=== PATIENT | male | born 1945 | race Caucasian/White ===

== ENCOUNTER 2016-06-21 03:28 | Inpatient (IN) ==
[2016-06-17 11:07] LABS: MANUAL DIFF NEEDED? NO
[2016-06-17 11:19] LABS: BASO% 0.8 % (0.0-0.8); EOS# 0.12 X1000 (0.0-0.7); EOS% 1.2 % (0.0-10.0); HEMATOCRIT 43.7 % (42.0-52.0); IMM GRAN# 0.04 X1000 (0.0-0.04); IMM GRAN% 0.4 % (0.0-0.5); LYMPH# 1.32 X1000 (1.2-3.4); LYMPH% 13.2 % (20.5-51.1); MCH 31.6 PG (27-31); MCHC 34.3 g/dL (33-37); MONO# 0.91 X1000 (0.11-0.59); MONO% 9.1 % (1.7-9.3); MPV 11.6 FL (7.4-10.4); NEUT% 75.3 % (42.2-75.2); PLT 121 X1000 (130-400); RBC 4.75 XMIL (4.7-6.1)
[2016-06-17 11:31] LABS: AGAP 10; BUN 15 mg/dL (8-22); CALCIUM 9.1 mg/dL (8.8-10.2); CHLORIDE 105 mmol/L (98-107); COSMO 285; POTASSIUM 4.8 mmol/L (3.5-5.1); SODIUM 141 mmol/L (136-145); TCO2 26 mmol/L (25-35)
[2016-06-21] MEDS ORDERED: PEPCID ONE (05:29)
[2016-06-21] MEDS ORDERED: LR 1,000 ML ONE ×2 (05:30→12:04)
[2016-06-21] MEDS ORDERED: KEFZOL 2 GM/D5W 0 ML ONE (05:30)
[2016-06-21] MEDS ORDERED: KEFZOL 2 GM/D5W 50 ML ONE (06:20)
[2016-06-21] MEDS ORDERED: VERSED ONE (06:25)
[2016-06-21] MEDS ORDERED: MARCAINE 0.25% PF/EPI 1:200,000 ONE (06:45)
[2016-06-21 08:02] LABS: URINE MICRO REVIEW NEEDED? NO; URINE SOURCE CATH
[2016-06-21 08:09] LABS: BILIRUBIN URINE NEGATIVE (NEGATIVE); BLOOD URINE NEGATIVE (NEGATIVE); COLOR YELLOW; GLUCOSE URINE NEGATIVE (NEGATIVE); LEUKOCYTES URINE NEGATIVE (NEGATIVE); NITRITE URINE NEGATIVE (NEGATIVE); PH URINE 5.5; PROTEIN URINE NEGATIVE (NEGATIVE); SP GRAVITY URINE 1.011; TURBIDITY URINE CLEAR (CLEAR); UR EPITHELIAL CELLS <10 /HPF (<10); URINE BACTERIA NEGATIVE /HPF; URINE RBC <10 /HPF (<10); URINE WBC <10 /HPF (<10); UROBILINOGEN URINE NORMAL (NORMAL)
[2016-06-21] MEDS ORDERED: SODIUM CHLORIDE 0.9% 20 ML ONE (08:37)
[2016-06-21] MEDS ORDERED: EXPAREL 1.3% ONE ×3 (08:37→09:43)
[2016-06-21] MEDS ORDERED: FENTANYL ONE (11:29)
[2016-06-21] MEDS ORDERED: OFIRMEV 1000 MG/ISOTONIC SOLN 100 ML ONE (11:30)
[2016-06-21] MEDS ORDERED: DIPRIVAN 1% ONE (11:30)
[2016-06-21] MEDS ORDERED: LABETALOL ONE (11:31)
[2016-06-21] MEDS ORDERED: DILAUDID ONE (11:52)
[2016-06-21] MEDS ORDERED: LUBRIFRESH PM OPH OINTMENT ONE (12:51)
[2016-06-21] MEDS ORDERED: ZOFRAN ONE (12:51)
[2016-06-21] MEDS ORDERED: NEOSTIGMINE ONE (12:51)
[2016-06-21] MEDS ORDERED: XYLOCAINE-MPF 2% ONE (12:52)
[2016-06-21] MEDS ORDERED: NORCURON ONE (12:52)
[2016-06-21] MEDS ORDERED: ROBINUL ONE (12:52)
[2016-06-21] MEDS ORDERED: NS 500 ML ONE (12:52)
[2016-06-21] MEDS ORDERED: STERILE WATER INJ. ONE (12:52)
[2016-06-21] MEDS ORDERED: QUELICIN (DOSE) ONE (12:52)
[2016-06-21] MEDS ORDERED: LR 2,000 ML ONE (12:52)
[2016-06-21] MEDS ORDERED: DECADRON ONE (12:52)
[2016-06-21] MEDS ORDERED: BREVIBLOC ONE (12:52)
--- NOTE | 2016-06-21 13:08 | OPERATIVE NOTE ---
PROCEDURE DATE: 06/21/2016 PREOPERATIVE DIAGNOSIS: Right upper lobe biopsy-proven lung cancer. POSTOPERATIVE DIAGNOSIS: Right upper lobe biopsy-proven lung cancer. PROCEDURES: 1. Right thoracotomy. 2. Right upper lobectomy. SURGEON: Manuel Quinones MD. STE[employer] FIREMAN: Stephen Davison MD. Dr. Davison assisted with retraction, identification of vessels on the resection. FINDINGS: Palpable lesion noted in the right upper lobe which was removed. The lesion in the right lower lobe which was not active on PET was palpable, but to do the full resection would essentially require a right lower lobe lobectomy and I was unsure if the patient would tolerate the physiologic consequences of this at the same time. COMPLICATIONS: None at the time of dictation. ESTIMATED BLOOD LOSS: 200 mL. SPECIMENS REMOVED: Right upper lobe. DRAINS: Two 28-South African chest tubes. BRIEF HISTORY: The patient is a 71-year-old male with biopsy-proven lung cancer. He had undergone a pulmonary function test, was found to be tolerated. He actually had an evaluation also by Dr. Tony with pulmonology who thought he could tolerate it. He also had cardiac clearance thought he could tolerate it. Therefore, we elected to remove the mass. The risks, benefits, alternatives were discussed. He voiced understanding and wished to proceed with procedure. DESCRIPTION OF PROCEDURE: After informed consent was obtained, patient was brought to the operative theatre, transferred to the operative table and placed in the supine position. General endotracheal anesthesia was then performed without complication. The patient is repositioned to right side up. Anesthesia was able to place a double-lumen tube and confirmed that we had isolated both lungs. We then prepped and draped the right side in a sterile fashion. A formal time-out was then performed confirming patient, date, procedure and side. All were in agreement. It should be noted the patient's right side had been previously confirmed and marked with the patient in preoperative holding. After this, and after the formal time-out, we made a standard lateral thoracotomy incision to enter into the thorax. At that time, the lung was deflated by anesthesia. We were able to safely enter the cavity. We tried to preserve the intercostal nerves as much as we could. We entered through the 5th intercostal space. We then turned our attention to the right upper lobe. We first started our dissection superiorly and retracted the lung inferiorly. We were able to identify the major vessels and ligate them with suture ligation. We then turned our attention to the inner lobe aspect. In a similar way, we were able to identify all the visible vessels in that area and ligated them, while preserving the blood vessels to the middle and lower lobe. We then turned our attention anteriorly. We were able to dissect out the vasculature there without difficulty. Assured that it was indeed only going to the right upper lobe. We were able to suture ligate these also. We then turned our attention posteriorly. We were able to identify the right main bronchus. We then occluded the right main bronchus. Asked anesthesia to inflate the lung. They did, we saw the middle lobe and the lower lobe inflate, but not the upper lobe signifying we had just occluded the right upper lobe bronchus. We fired a stapler across this. We also fired multiple staplers across the fissures to remove the lung in its entirety. Once we had done this, we removed the lung. We were able to palpate the lesion once we removed it. We placed water into the thorax and performed a leak test by slowly increasing the peak pressures up to 40 on the right lobe. There was no leakage noted at the main bronchus. There was some minor leakage noted at the fissure line. We did spray sealant on the area. We viewed all surfaces. There was no active bleeding. All the major vessels were hemostatic. We did preserve the azygous and the phrenic nerve. We then turned our attention to closing. We made 3 small holes in the 6th rib through which we passed a suture through the closed rib space. We then closed the serratus and the latissimus dorsi with running suture. We did inject Exparel and Marcaine in an intercostal nerve block for both the 5th and 6th rib spaces. Prior to closure, we did tunnel two 28-South African chest tubes inferiorly to this. One was placed anteriorly, 1 was placed posteriorly. They were secured in place in the standard fashion. We finished closing the thorax. Placed dari on the skin. Connected chest tubes to the atriums. Patient tolerated procedure well. We transferred to the ICU to be monitored.
[2016-06-21] MEDS: LR 1,000 ML IV SCH ×2 (13:32→21:59)
[2016-06-21] MEDS: MORPHINE IV PRN ×2 (16:06→20:20)
--- NOTE | 2016-06-21 17:29 | CONSULTATION ---
DATE OF CONSULTATION: 06/21/2016 CHIEF COMPLAINT: Pulmonary consultation in intensive care unit setting for lung cancer, right upper lobe lobectomy, COPD. HISTORY OF PRESENTING ILLNESS: This is a 71-year-old man with past history of hypertension, prior valve replacement, diabetes, coronary artery disease, bypass surgery in the past, hyperlipidemia, bipolar, depression, GERD. Postoperative today with right upper lobe lobectomy. Extubated. Currently on nasal cannula in the intensive care unit. Not on any pressors. PAST MEDICAL HISTORY: As above. Includes hypertension, hyperlipidemia, diabetes, coronary artery disease, COPD, lung cancer. PAST SURGICAL HISTORY: Coronary artery bypass graft, aortic valve replacement and now right upper lobe lobectomy. ALLERGIES: Possible to Haldol and Luvox. MEDICATIONS: In the hospital reviewed and include Cardizem, Glucotrol, subcu heparin, aspirin, Imdur, Cozaar, Toprol-XL, morphine, Protonix, Pravachol. HOME MEDICATIONS: Reviewed. REVIEW OF SYSTEMS: As detailed in history of presenting illness, otherwise, noncontributory. FAMILY HISTORY: Positive for COPD. PHYSICAL EXAMINATION: Patient is awake, communicative. He is on general exam, sitting in bed, right-sided 2 chest tubes drainage catheters are obvious. Head and Neck: Trachea midline. Chest Exam: Right-sided 2 chest tube, reduced entry. Cardiac: S1, S2. Abdomen: Nontender. Limbs: No pedal edema. Neurological: Awake and communicative. LABS AND INVESTIGATIONS: UA noted. I ordered CBC, CMP, chest x-ray for the morning. His prior records and CT scans reviewed. ASSESSMENT AND PLAN: A 71-year-old man with COPD, hypertension, hyperlipidemia, coronary artery disease, prior aortic valve replacement presented now to the hospital for right upper lobe lobectomy for lung cancer and recovering postoperatively. Continue current support and management. Will check x-ray and labs ABG in the morning. Continue GI prophylaxis and when appropriate DVT prophylaxis. Thank you for the courtesy of this consultation.
[2016-06-21] MEDS: NICODERM PATCH TD SCH (18:05)
[2016-06-21 18:09] LABS: ALLEN TEST NO; BE -4.2 mmoll (-3.0-3.0); BLOOD TYPE ARTERIAL; METHB 1.1 % (0.0-1.5); O2(CT) 18.3 mL/dL (15.0-23.0); PCO2(98.6) 38 mmHg (35-45); PO2(98.6) 83 mmHg (60-100); SAMPLE BLOOD; SAO2 97.7 % (95.0-100.0); THB 13.8 g/dL (11.5-17.4); pH(98.6) 7.35 (7.35-7.45)
[2016-06-21 18:10] LABS: MODALITY CANNULA
[2016-06-21 18:11] LABS: DRAW SITE OTHER
--- NOTE | 2016-06-21 20:16 | Diag Imaging Result Document ---
PROCEDURE NAME: CHEST-PORTABLE - 06/21/2016 PORTABLE CHEST X-RAY: COMPARISON: 05/08/2016. FINDINGS: There are new surgical skin dari over the right side of the chest. There are double right chest tubes in good position. No pneumothorax. There is some soft tissue gas at the right chest wall. There is significant decrease in the right lung volume. Stable cardiomegaly. There is some trace infiltrate at the left lung base probably atelectasis. IMPRESSION: No specific complication.
[2016-06-21] MEDS: PATIENT'S OWN MED PO SCH ×2 (20:20)
[2016-06-21] MEDS: PROTONIX PO SCH (20:20)
[2016-06-21] MEDS: PRAVACHOL PO SCH (20:20)
[2016-06-22] MEDS: MORPHINE IV PRN ×3 (00:43→06:16)
[2016-06-22] MEDS ORDERED: ZOFRAN IV PRN (01:05)
[2016-06-22 04:26] LABS: ALLEN TEST YES; BLOOD TYPE ARTERIAL; DRAW SITE R RADIAL; METHB 1.1 % (0.0-1.5); O2(CT) 17.7 mL/dL (15.0-23.0); PCO2(98.6) 45 mmHg (35-45); PO2(98.6) 64 mmHg (60-100); SAMPLE BLOOD; SAO2 94.3 % (95.0-100.0); THB 13.8 g/dL (11.5-17.4); pH(98.6) 7.42 (7.35-7.45)
[2016-06-22 04:29] LABS: MODALITY CANNULA
[2016-06-22 04:57] LABS: BASO% 0.1 % (0.0-0.8); HEMATOCRIT 39.3 % (42.0-52.0); HEMOGLOBIN 13.6 g/dL (14.0-18.0); IMM GRAN# 0.06 X1000 (0.0-0.04); IMM GRAN% 0.3 % (0.0-0.5); LYMPH# 0.92 X1000 (1.2-3.4); LYMPH% 4.6 % (20.5-51.1); MANUAL DIFF NEEDED? YES; MCH 31.5 PG (27-31); MCHC 34.6 g/dL (33-37); MONO# 1.97 X1000 (0.11-0.59); MONO% 9.9 % (1.7-9.3); MPV 11.6 FL (7.4-10.4); NEUT% 85.1 % (42.2-75.2); PLT 110 X1000 (130-400); RBC 4.32 XMIL (4.7-6.1)
[2016-06-22 05:26] LABS: AGAP 11; BUN 10 mg/dL (8-22); CALCIUM 8.7 mg/dL (8.8-10.2); CHLORIDE 104 mmol/L (98-107); COSMO 280; POTASSIUM 4.2 mmol/L (3.5-5.1); SODIUM 139 mmol/L (136-145); TCO2 24 mmol/L (25-35)
[2016-06-22 07:10] LABS: LYMPHS 2 % (21-51); MONO 6 % (1-9)
[2016-06-22] MEDS: HEPARIN SUBQ SCH ×3 (07:54→23:56)
[2016-06-22] MEDS ORDERED: GLUCOTROL PO SCH (08:00)
[2016-06-22] MEDS: LR 1,000 ML IV SCH ×2 (08:06→20:35)
[2016-06-22] MEDS: NICODERM PATCH TD SCH (08:47)
[2016-06-22] MEDS: NORCO-10 PO PRN (08:49)
[2016-06-22] MEDS ORDERED: COZAAR PO SCH (09:00)
[2016-06-22] MEDS ORDERED: ICAR-C PLUS PO SCH (09:00)
[2016-06-22] MEDS ORDERED: TOPROL XL PO SCH (09:00)
[2016-06-22] MEDS ORDERED: CARDIZEM CD PO SCH (09:00)
[2016-06-22] MEDS ORDERED: ASPIRIN EC PO SCH (09:00)
[2016-06-22] MEDS ORDERED: IMDUR PO SCH (09:00)
[2016-06-22 09:23] LABS: ALLEN TEST YES; BE 2.8 mmoll (-3.0-3.0); BLOOD TYPE ARTERIAL; DRAW SITE R RADIAL; METHB 0.9 % (0.0-1.5); PCO2(98.6) 40 mmHg (35-45); SAMPLE BLOOD; THB 14.2 g/dL (11.5-17.4); pH(98.6) 7.44 (7.35-7.45)
[2016-06-22 09:25] LABS: PO2(98.6) 48 mmHg (60-100)
[2016-06-22 09:26] LABS: MODALITY CANNULA
--- NOTE | 2016-06-22 09:59 | Diag Imaging Result Document ---
PROCEDURE NAME: CHEST-PORTABLE - 06/22/2016 PORTABLE CHEST X-RAY AT 0938 HOURS: COMPARISON: 0549 hours. FINDINGS: Stable surgical changes on the right with double right chest tubes. No significant pneumothorax. Stable small amount of soft-tissue gas at the right chest wall. Stable rounded opacifications at the right hilum. The left lung remains clear. IMPRESSION: No significant change from prior.
--- NOTE | 2016-06-22 10:00 | Diag Imaging Result Document ---
PROCEDURE NAME: CHEST-PORTABLE - 06/22/2016 PORTABLE CHEST X-RAY AT 0500 HOURS: COMPARISON: 1810 hours. FINDINGS: Stable double right chest tubes. Stable surgical changes to the right lung. Stable opacity at the right hilum. The left lung remains clear. No significant pneumothorax. IMPRESSION: No change from prior.
[2016-06-22 10:51] LABS: CK INDEX 1.2 (0.0-2.5); CK-MB 7.88 ng/mL (0.0-5.0)
--- NOTE | 2016-06-22 10:57 | Diag Imaging Result Document ---
PROCEDURE NAME: ANGIOGRAM/PULMONARY ARTERIES - 06/22/2016 CT PULMONARY ANGIOGRAM WITH INTRAVENOUS CONTRAST: COMPARISON: 04/19/2016. FINDINGS: Axial CT images of the chest were obtained after administering intravenous contrast. Coronal MIP images were generated. There is no pulmonary embolism. There are surgical changes of right upper lobectomy. There are double right chest tubes. In spite of this, there is a small, approximately 25%, right pneumothorax. There is significant consolidation/volume loss at the right hilum probably mostly atelectasis. There is significant mucous plugging of essentially all of the segmental bronchi of the right lower lobe, as well as some mild plugging on the right middle lobe. The left lung is clear and well aerated. There are fractures of the right 5th and 6th ribs, nondisplaced. IMPRESSION: 1. Significant mucous plugging of the segmental bronchi on the right, mostly in the right lower lobe. Significant atelectasis at the right hilum. 2. Small, approximately 25%, right pneumothorax. 3. Other expected findings as described above.
[2016-06-22] MEDS ORDERED: ZOSYN 3.375 GM/NS 50 ML IV SCH (12:15)
[2016-06-22] MEDS ORDERED: CARDIZEM IV ONE (12:42)
[2016-06-22] MEDS ORDERED: LANOXIN IV SCH (12:45)
[2016-06-22 12:48] LABS: ALLEN TEST NO; BE 1.7 mmoll (-3.0-3.0); BLOOD TYPE ARTERIAL; METHB 0.7 % (0.0-1.5); O2(CT) 14.9 mL/dL (15.0-23.0); PCO2(98.6) 38 mmHg (35-45); SAMPLE BLOOD; SAO2 74.5 % (95.0-100.0); THB 14.6 g/dL (11.5-17.4); pH(98.6) 7.44 (7.35-7.45)
[2016-06-22 12:49] LABS: DRAW SITE OTHER
[2016-06-22 12:50] LABS: PO2(98.6) 36 mmHg (60-100)
[2016-06-22 12:51] LABS: MODALITY NRB
[2016-06-22] MEDS: LANOXIN IV SCH ×3 (12:53→23:56)
[2016-06-22] MEDS: CARDIZEM 100 MG/NS 100 ML IV SCH (12:55)
[2016-06-22] MEDS ORDERED: VERSED ONE (13:04)
[2016-06-22] MEDS ORDERED: MORPHINE ONE (13:05)
--- NOTE | 2016-06-22 13:08 | Diag Imaging Result Document ---
PROCEDURE NAME: CHEST-1 VIEW - 06/22/2016 PORTABLE CHEST X-RAY: TIME: 1250 hours. COMPARISON: CT from 1005 hours. FINDINGS: There is further increasing atelectasis of the residual right lung, probably due to the mucous plugging. This process was already discussed in detail with Dr. Emmanuel at about 10:30 a.m. today, following the chest CT. The left lung remains clear. IMPRESSION: Continued collapse of the right lung, probably due to mucous plugging.
[2016-06-22] MEDS ORDERED: NORCURON ONE (13:14)
[2016-06-22] MEDS ORDERED: STERILE WATER INJ. ONE (13:14)
[2016-06-22] MEDS ORDERED: NORCURON IV ONE (13:25)
[2016-06-22] MEDS ORDERED: MORPHINE IV ONE (13:25)
[2016-06-22] MEDS ORDERED: VERSED IV ONE ×2 (13:26→13:40)
[2016-06-22] MEDS ORDERED: NS 1,000 ML ONE (13:28)
[2016-06-22] MEDS ORDERED: ALBUMIN 25% 50 GM in NS 800 ML IV ONE (13:30)
[2016-06-22] MEDS ORDERED: MISC. PHARMACY COMMUNICATION SCH (13:30)
[2016-06-22 13:42] LABS: ALLEN TEST NO; BE -0.4 mmoll (-3.0-3.0); BLOOD TYPE ARTERIAL; METHB 0.9 % (0.0-1.5); O2(CT) 15.1 mL/dL (15.0-23.0); PCO2(98.6) 45 mmHg (35-45); SAMPLE BLOOD; SAO2 78.2 % (95.0-100.0); SRATE 24 BPM; THB 14.1 g/dL (11.5-17.4); TVOL 550 mL; pH(98.6) 7.36 (7.35-7.45)
[2016-06-22 13:43] LABS: DRAW SITE OTHER; MODALITY VENTILATOR; PO2(98.6) 41 mmHg (60-100)
[2016-06-22] MEDS ORDERED: NEO-SYNEPHRINE 50 MG in NS 250 ML IV SCH (13:45)
[2016-06-22] MEDS ORDERED: NS 1,000 ML IV ONE (13:52)
[2016-06-22] MEDS ORDERED: VANCOMYCIN IV PER PHARMACY MISC SCH (14:00)
--- NOTE | 2016-06-22 14:10 | Diag Imaging Result Document ---
PROCEDURE NAME: CHEST-PORTABLE - 06/22/2016 PORTABLE CHEST X-RAY: TIME: 1350 hours. COMPARISON: 1250 hours. FINDINGS: There is a new endotracheal tube at T3. Stable nasogastric tube with the tip in the stomach. Stable double right chest tubes. There is a right internal jugular central line in good position. Stable complete consolidation of the residual right lung. IMPRESSION: See findings.
[2016-06-22] MEDS: LEVAQUIN 750 MG/D5W 150 ML IV SCH (14:12)
[2016-06-22] MEDS: DIPRIVAN 1% IV PRN ×3 (14:23→21:51)
[2016-06-22] MEDS: MERREM 1 GM in NS 50 ML IV SCH ×2 (14:23→21:07)
[2016-06-22] MEDS: DUONEB (A & A) INH SCH ×3 (15:36→22:47)
--- NOTE | 2016-06-22 17:33 | OPERATIVE NOTE ---
PROCEDURE DATE: 06/22/2016 PROCEDURE: Right internal jugular triple-lumen catheter. INDICATIONS: Venous access and respiratory failure. DESCRIPTION OF THE PROCEDURE: Patient was placed in a supine position. Right-sided internal jugular site was prepped with ChloraPrep and using the 14-gauge introducer needle, the internal jugular vein was punctured and a guidewire inserted over which a dilator was passed and a 20 cm triple-lumen catheter was inserted at 20 cm, sutured in position with two 2-0 silk sutures. Good blood flow. All ports appropriate chest position on chest x- ray.
[2016-06-22 17:34] LABS: URINE CULTURE NEEDED? NO; URINE MICRO REVIEW NEEDED? NO; URINE SOURCE CATH
[2016-06-22] MEDS: VANCOMYCIN 2 GM in NS 500 ML IV SCH (17:34)
[2016-06-22 17:38] LABS: BILIRUBIN URINE NEGATIVE (NEGATIVE); BLOOD URINE SMALL (NEGATIVE); COLOR YELLOW; GLUCOSE URINE NEGATIVE (NEGATIVE); LEUKOCYTES URINE NEGATIVE (NEGATIVE); NITRITE URINE NEGATIVE (NEGATIVE); PH URINE 5.5; PROTEIN URINE TRACE mg/dL (NEGATIVE); SP GRAVITY URINE 1.045; TURBIDITY URINE CLEAR (CLEAR); UROBILINOGEN URINE NORMAL (NORMAL)
--- NOTE | 2016-06-22 17:38 | OPERATIVE NOTE ---
PROCEDURE DATE: 06/22/2016 PROCEDURE: Oral intubation. INDICATION: Respiratory failure with hypoxemia. DESCRIPTION OF PROCEDURE: Patient was sedated with Versed and intubated, and using a 4 Mere blade, a #8 ET tube was placed at 22 cm with good color change on the indicator, taped into position 22 cm, adjusted after the chest x-ray to 23 cm.
[2016-06-22 17:39] LABS: UR EPITHELIAL CELLS <10 /HPF (<10); URINE BACTERIA NEGATIVE /HPF; URINE RBC <10 /HPF (<10); URINE WBC <10 /HPF (<10)
--- NOTE | 2016-06-22 18:26 | CONSULTATION ---
DATE OF CONSULTATION: 06/22/2016 REQUESTING PHYSICIAN: Dr. Emmanuel, Surgical Service REASON FOR CONSULTATION: Tachycardia, possible atrial fibrillation. HISTORY OF PRESENT ILLNESS: Mr. Sapp is a very pleasant 71-year-old male patient of Dr. Yip. He presented to the hospital for elective right upper lobe lobectomy and right thoracotomy. This was performed by Dr. Davison yesterday, 06/21/2016. The operation went well. He has been stable, and this morning he was noted to have episodes of tachycardia. EKG shows what appears to be atrial flutter at a rate of 145 beats per minute. There is a right bundle branch block pattern with a rightward axis. His prior tracings from 06/2014 showed the same right bundle branch block type of pattern. The patient has some pneumothorax which is expected following the surgery. He has postoperative pain. He is presently being oxygenated with a nonrebreather mask. He is in some painful distress. They put an NG tube in him to drain the stomach. He is sitting upright. PAST MEDICAL HISTORY: Positive for severe aortic valve disease. He has had previous aortic valve replacement. The patient carries a history of diabetes, hypertension, dyslipidemia, gastric reflux. He has had bipolar depression. PAST SURGICAL HISTORY: Positive for the surgical valve procedure. The patient has had a recent cardiac catheterization performed in 06/2014 that showed that his left main was normal. The LAD showed 20% discrete lesion, circumflex showed no significant disease. Right coronary artery was dominant with 10% to 20% disease. His aortic valve was working properly. A recent echocardiogram performed by Dr. Yip on 06/05/2016 shows adequate left ventricular function and adequate bioprosthetic valve function. HOME MEDICATIONS: At the time of the current admission are clozapine, Protonix 40 mg at bedtime, pravastatin 40 mg daily, metoprolol 25 mg daily, losartan 25 daily, isosorbide mononitrate 30 daily, glipizide 10 daily, diltiazem 120 daily. He is also on baby aspirin. ALLERGIES: Haloperidol and fluvoxamine. REVIEW OF SYSTEMS: Really noncontributory other than the positive finding of lung cancer which has been successfully removed by Dr. Davison. 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 PHYSICAL EXAMINATION: Right now his pulse is going at 160. His blood pressure is 110/60, temperature 98 degrees, respirations 27. He is in some distress, tachypneic. HEENT is unremarkable. Chest: Diminished sounds in the right lung. Left lung is basically clear. Heart sounds are rapid, relatively regular. He has an NG tube in place. Abdomen is slightly distended, tympanitic. Bowel sounds diminished. Extremities showed very good pulses. No edema. Neurologic: He follows commands. He moves all 4 extremities. DIAGNOSTIC DATA: Blood work today shows hemoglobin of 13.6, white count 19, 000. Blood gases show pH of 7.4, pCO2 was 38, pO2 was 36 before being given the nonrebreather mask. Sodium is 139, potassium 4.2, BUN was 10, creatinine 0.7. Troponin was negative. ProBNP was 674. IMPRESSION: 1. The patient is status post right thoracotomy and right upper lobectomy for poorly differentiated squamous cell carcinoma. 2. Atrial flutter with rapid ventricular response. 3. History of aortic valve replacement with a bioprosthesis with very mild coronary artery disease.This condition DOES NOT REQUIRE ANTICOAGULATION. 4. History of hypertension. 5. History of diabetes. RECOMMENDATIONS: At this point in time, we will put the patient on IV Cardizem drip and bolus. We will give him IV digoxin. We will follow his hospital course. This paroxysmal atrial fibrillation is relatively expected given the thoracotomy. He is postoperative day number 1. Otherwise, he appears to be hemodynamically stable. We will follow him along with you. Thank you for the opportunity to participate in his evaluation. Best regards. [facility] CENT[facility]ad[facility]
[2016-06-22] MEDS: PRAVACHOL PO SCH (20:35)
[2016-06-22] MEDS: PROTONIX PO SCH (20:35)
[2016-06-22] MEDS: PATIENT'S OWN MED PO SCH ×2 (20:46→20:55)
[2016-06-23] MEDS: DIPRIVAN 1% IV PRN ×8 (02:18→20:04)
[2016-06-23] MEDS: DUONEB (A & A) INH SCH ×6 (02:44→23:27)
[2016-06-23] MEDS: LR 1,000 ML IV SCH ×2 (04:06→17:04)
[2016-06-23 04:18] LABS: ALLEN TEST YES; BE 1.7 mmoll (-3.0-3.0); BLOOD TYPE ARTERIAL; DRAW SITE R RADIAL; METHB 1.1 % (0.0-1.5); PCO2(98.6) 42 mmHg (35-45); PO2(98.6) 148 mmHg (60-100); SAMPLE BLOOD; SAO2 98.2 % (95.0-100.0); SRATE 24 BPM; THB 9.3 g/dL (11.5-17.4); TVOL 550 mL; pH(98.6) 7.41 (7.35-7.45)
[2016-06-23 04:19] LABS: MODALITY VENTILATOR
[2016-06-23 04:58] LABS: BASO% 0.2 % (0.0-0.8); EOS# 0.03 X1000 (0.0-0.7); EOS% 0.2 % (0.0-10.0); HEMATOCRIT 34.8 % (42.0-52.0); HEMOGLOBIN 11.8 g/dL (14.0-18.0); IMM GRAN# 0.05 X1000 (0.0-0.04); IMM GRAN% 0.3 % (0.0-0.5); LYMPH# 0.69 X1000 (1.2-3.4); MANUAL DIFF NEEDED? YES; MCH 31.8 PG (27-31); MCHC 33.9 g/dL (33-37); MCV 93.8 FL (81-99); MONO# 1.42 X1000 (0.11-0.59); MONO% 8.1 % (1.7-9.3); MPV 12.3 FL (7.4-10.4); NEUT% 87.2 % (42.2-75.2); PLT 93 X1000 (130-400); RBC 3.71 XMIL (4.7-6.1)
[2016-06-23 05:11] LABS: AGAP 10; BUN 16 mg/dL (8-22); CALCIUM 7.9 mg/dL (8.8-10.2); CHLORIDE 106 mmol/L (98-107); COSMO 285; POTASSIUM 3.9 mmol/L (3.5-5.1); SODIUM 141 mmol/L (136-145); TCO2 25 mmol/L (25-35)
[2016-06-23] MEDS ORDERED: NS 500 ML IV ONE (05:23)
[2016-06-23 05:36] LABS: LYMPHS 4 % (21-51); MONO 9 % (1-9)
[2016-06-23] MEDS: SODIUM CHLORIDE 0.9% INJ SCH ×2 (05:40→17:07)
[2016-06-23] MEDS: MERREM 1 GM in NS 50 ML IV SCH ×3 (05:40→21:20)
[2016-06-23] MEDS: PROTONIX IV SCH ×2 (05:40→17:07)
[2016-06-23] MEDS: LANOXIN IV SCH (06:01)
[2016-06-23] MEDS ORDERED: CARDIZEM IV ONE (06:49)
[2016-06-23] MEDS ORDERED: FLEET MINERAL OIL ENEMA PR ONE (08:18)
[2016-06-23] MEDS: MILK OF MAGNESIA NG SCH ×2 (09:05→20:03)
[2016-06-23] MEDS: NICODERM PATCH TD SCH (09:05)
--- NOTE | 2016-06-23 09:40 | Diag Imaging Result Document ---
PROCEDURE NAME: ABDOMEN FLAT/UPRIGHT - 06/23/2016 X-RAY ABDOMEN 2 VIEWS, 06/23/2016: COMPARISON: None. FINDINGS: There is extremely severe constipation. No obvious bowel obstruction or free air. IMPRESSION: Extremely severe constipation.
--- NOTE | 2016-06-23 10:41 | Diag Imaging Result Document ---
PROCEDURE NAME: CHEST-PORTABLE - 06/23/2016 PORTABLE CHEST X-RAY, 06/23/2016: COMPARISON: 06/22/2016. FINDINGS: There has been substantial improvement in aeration of the right lung, with some residual infiltrate throughout the remaining lung. Stable double right chest tubes. Stable right central line. Stable endotracheal tube and nasogastric tube. No visible pneumothorax. There is significant decrease in the subcutaneous emphysema on the right. The left lung remains clear. IMPRESSION: Significant improvement from prior.
[2016-06-23] MEDS ORDERED: RELISTOR SUBQ ONE (10:52)
[2016-06-23] MEDS: CARDIZEM 100 MG/NS 100 ML IV SCH ×3 (11:39→20:05)
--- NOTE | 2016-06-23 12:30 | PROGRESS NOTE ---
DATE: 06/23/2016 CHIEF COMPLAINT: Shortness of breath. SUBJECTIVE: Mr. Sapp was intubated yesterday. He went into respiratory failure. Significant opacity in the right lung. He was having paroxysmal atrial fibrillation. After intubation, he converted to sinus rhythm; however, overnight he has reverted back to atrial fibrillation. We have instituted IV Cardizem, and his rate is better controlled. He remains intubated. Dr. Mata from Pulmonary Medicine is following. OBJECTIVE: Blood pressure right now is 114/53, pulse 103, respirations 15 to 16 , temperature today is 98.2. He is sedated. He has an NG tube and an orotracheal tube. HEENT is otherwise unremarkable. Chest shows diffusely diminished breath sounds in the right lung. He has chest tubes coming out of the right chest. Left lung is relatively clear; however, he has coarse rhonchi bilaterally. He has also end expiratory wheezes. Heart sounds are distant, irregularly irregular. Abdomen is nontender, distended. Bowel sounds diminished. No hepatomegaly is noted. Extremities showed good pulses, no edema. Neurologic: He is sedated. DIAGNOSTIC DATA: Today his sodium is 141, potassium 3.9, BUN and creatinine are normal. Calcium is 7.9. Hemoglobin is 11.8. IMPRESSION: 1. The patient is status post thoracotomy and right upper lobectomy. This is postoperative day 2.Complicated with acute respiratory failure. 2. Paroxysmal atrial fibrillation. 3. History of aortic valve replacement with a bioprosthesis with very mild coronary artery disease. 4. History of diabetes. 5. History of hypertension. RECOMMENDATIONS: At this point in time, we will keep him on IV Cardizem and digoxin until his pulmonary status stabilizes. Further advice will be forthcoming. Thank you for the opportunity to participate in his evaluation. Best regards. [facility]PITALRadha
[2016-06-23] MEDS: LEVAQUIN 750 MG/D5W 150 ML IV SCH (13:49)
[2016-06-23] MEDS: VANCOMYCIN 2 GM in NS 500 ML IV SCH (17:01)
[2016-06-23] MEDS: MORPHINE IV PRN (23:19)
[2016-06-24] MEDS: DIPRIVAN 1% IV PRN ×7 (00:53→23:41)
[2016-06-24] MEDS: NORCO-10 PO PRN ×2 (00:55→20:10)
[2016-06-24] MEDS: LR 1,000 ML IV SCH (00:59)
[2016-06-24] MEDS: MORPHINE IV PRN ×3 (02:48→18:23)
[2016-06-24] MEDS: DUONEB (A & A) INH SCH ×6 (03:38→23:06)
[2016-06-24 04:58] LABS: ALLEN TEST YES; BE 3.3 mmoll (-3.0-3.0); BLOOD TYPE ARTERIAL; METHB 1.1 % (0.0-1.5); O2(CT) 12.7 mL/dL (15.0-23.0); PCO2(98.6) 33 mmHg (35-45); PO2(98.6) 93 mmHg (60-100); SAMPLE BLOOD; SAO2 97.5 % (95.0-100.0); SRATE 24 BPM; THB 9.3 g/dL (11.5-17.4); TVOL 600 mL; pH(98.6) 7.51 (7.35-7.45)
[2016-06-24 05:00] LABS: MODALITY VENTILATOR
[2016-06-24 05:25] LABS: MANUAL DIFF NEEDED? NO
[2016-06-24 05:41] LABS: BASO% 0.2 % (0.0-0.8); EOS# 0.06 X1000 (0.0-0.7); EOS% 0.5 % (0.0-10.0); HEMATOCRIT 31.3 % (42.0-52.0); HEMOGLOBIN 10.4 g/dL (14.0-18.0); IMM GRAN# 0.02 X1000 (0.0-0.04); IMM GRAN% 0.2 % (0.0-0.5); LYMPH# 0.88 X1000 (1.2-3.4); LYMPH% 7.2 % (20.5-51.1); MCH 30.8 PG (27-31); MCHC 33.2 g/dL (33-37); MCV 92.6 FL (81-99); MONO# 1.01 X1000 (0.11-0.59); MONO% 8.3 % (1.7-9.3); MPV 12.3 FL (7.4-10.4); NEUT% 83.6 % (42.2-75.2); PLT 81 X1000 (130-400); RBC 3.38 XMIL (4.7-6.1)
[2016-06-24 05:52] LABS: AGAP 9; ALBUMIN 2.3 g/dL (3.5-5.0); ALKALINE PHOSPHATASE 54 U/L (32-122); BUN 13 mg/dL (8-22); CALCIUM 7.3 mg/dL (8.8-10.2); CHLORIDE 108 mmol/L (98-107); COSMO 283; GOT 14 U/L (10-34); GPT 11 U/L (10-44); POTASSIUM 3.4 mmol/L (3.5-5.1); SODIUM 141 mmol/L (136-145); TCO2 24 mmol/L (25-35); TOTAL BILIRUBIN 0.37 mg/dL (0.20-1.00); TOTAL PROTEIN 4.4 g/dL (6.3-8.3)
[2016-06-24] MEDS: MERREM 1 GM in NS 50 ML IV SCH ×3 (06:23→22:00)
[2016-06-24] MEDS: PROTONIX IV SCH ×2 (06:23→17:39)
--- NOTE | 2016-06-24 06:23 | EKG Report ---
Test Performed on : 06/22/2016 1:37:45 PM Test Reason : TACHYCARDIA Blood Pressure : / mmHG Vent. Rate : 155 BPM Atrial Rate : 163 BPM P-R Int : 000 ms QRS Dur : 132 ms QT Int : 324 ms P-R-T Axes : 000 085 -59 degrees QTc Int : 520 ms Wide QRS tachycardia. , suspect atrial fibillation/ flutter Right bundle branch block T wave abnormality, consider inferior ischemia Abnormal ECG When compared with ECG of 22-JUN-2016 10:07, (Unconfirmed) No significant change was found Confirmed by Pollo Ackerman MD ([id number]) on 06/26/2016 10:18:16 PM
[2016-06-24] MEDS: CARDIZEM 100 MG/NS 100 ML IV SCH ×3 (07:22→20:11)
[2016-06-24] MEDS ORDERED: LR 1,000 ML IV SCH (08:03)
[2016-06-24] MEDS ORDERED: LASIX IV ONE (08:04)
--- NOTE | 2016-06-24 08:10 | Diag Imaging Result Document ---
PROCEDURE NAME: CHEST-PORTABLE - 06/24/2016 AP PORTABLE CHEST AT 0600 HOURS: FINDINGS: There is an endotracheal tube with its tip in the thoracic inlet and an NG tube which passes below the diaphragm. There are 2 chest tubes in the right hemithorax. There is clearing of some of the edema present, particularly in the upper portion of the right lung compared to 06/23/2016. The inspiration is actually slightly less optimal than on the previous study. IMPRESSION: Improvement in right-sided pulmonary edema.
[2016-06-24] MEDS: MILK OF MAGNESIA NG SCH ×2 (08:16→20:16)
[2016-06-24] MEDS: HEPARIN SUBQ SCH ×3 (08:16→23:28)
[2016-06-24] MEDS: NICODERM PATCH TD SCH (08:16)
[2016-06-24] MEDS: LANOXIN IV SCH (08:16)
--- NOTE | 2016-06-24 11:18 | EKG Report ---
Test Performed on : 06/23/2016 06:26:51 AM Test Reason : NO ORDER IN [facility] TO ATTACH TO EKG Blood Pressure : / mmHG Vent. Rate : 135 BPM Atrial Rate : 119 BPM P-R Int : 000 ms QRS Dur : 122 ms QT Int : 322 ms P-R-T Axes : 000 085 -38 degrees QTc Int : 483 ms Atrial fibrillation. with rapid ventricular response. Right bundle branch block T wave abnormality, consider inferior ischemia Abnormal ECG When compared with ECG of 22-JUN-2016 13:37, (Unconfirmed) Atrial fibrillation. has replaced Wide QRS tachycardia. Confirmed by Pollo Ackerman MD ([id number]) on 06/26/2016 10:19:05 PM
--- NOTE | 2016-06-24 11:28 | EKG Report ---
Test Performed on : 06/22/2016 10:07:20 AM Test Reason : TACHYCARDIA Blood Pressure : / mmHG Vent. Rate : 145 BPM Atrial Rate : 125 BPM P-R Int : 000 ms QRS Dur : 130 ms QT Int : 324 ms P-R-T Axes : 000 088 -56 degrees QTc Int : 503 ms Wide QRS tachycardia. , suspect atrial fibrillation/ flutter Right bundle branch block T wave abnormality, consider inferior ischemia Nonspecific ST and T wave abnormality Abnormal ECG When compared with ECG of 26-JUN-2014 05:59, Wide QRS tachycardia. has replaced Sinus rhythm. Vent. rate has increased BY 76 BPM Confirmed by Pollo Ackerman MD ([id number]) on 06/26/2016 10:17:00 PM
[2016-06-24] MEDS: LEVAQUIN 750 MG/D5W 150 ML IV SCH (13:25)
--- NOTE | 2016-06-24 14:15 | PROGRESS NOTE ---
DATE: 06/24/2016 CHIEF COMPLAINT: Irregular heartbeat, shortness of breath and respiratory failure. SUBJECTIVE: Mr. Sapp remains intubated and sedated. His heart rate is better controlled on present doses of Cardizem. He cannot talk, he is very, very sedated. OBJECTIVE: Vital signs: Blood pressure is 121/65, temperature 99.1, pulse 80, respirations 24. He is orotracheally intubated. HEENT: Unremarkable. Chest shows diminished breath sounds in the right lung field. Heart sounds are irregularly irregular. Abdomen is not distended. No hepatomegaly is noted. Extremities showed good pulses. No edema. Neurologic: He does not move any extremities. He is totally sedated. DIAGNOSTIC DATA: Blood work shows sodium 141, potassium 3.4, BUN is 13, creatinine 0.5. Hemoglobin is 10.4, white count is 12,240. IMPRESSION: 1. The patient is postoperative day number 3, I believe, following his thoracotomy. He had right upper lung lobectomy. 2. Paroxysmal atrial fibrillation. 3. History of coronary artery disease of mild severity. 4. Status post aortic valve replacement with a bioprosthesis. 5. Respiratory failure on mechanical ventilation. RECOMMENDATIONS: At this point in time, we will continue present management with IV Cardizem. We will continue also low dose of digoxin. Pulmonary and General Surgery are managing the respiratory aspect of his condition and his general care. We will follow him along. Thank you for the opportunity to participate in his evaluation. MTDRadha
[2016-06-24] MEDS: NS 500 ML IV SCH ×2 (15:51→20:10)
[2016-06-24] MEDS: VANCOMYCIN 2 GM in NS 500 ML IV SCH (17:20)
[2016-06-24] MEDS: SODIUM CHLORIDE 0.9% INJ SCH (17:39)
[2016-06-24] MEDS: OFIRMEV 1000 MG/ISOTONIC SOLN 100 ML IV SCH ×2 (18:23→23:27)
[2016-06-25] MEDS: DUONEB (A & A) INH SCH ×6 (03:37→23:21)
[2016-06-25] MEDS: DIPRIVAN 1% IV PRN ×2 (03:53→06:54)
[2016-06-25 04:45] LABS: ALLEN TEST YES; BE 4.7 mmoll (-3.0-3.0); BLOOD TYPE ARTERIAL; DRAW SITE R RADIAL; PCO2(98.6) 37 mmHg (35-45); PO2(98.6) 57 mmHg (60-100); SAMPLE BLOOD; SRATE 24 BPM; TVOL 600 mL; pH(98.6) 7.49 (7.35-7.45)
[2016-06-25 04:47] LABS: MODALITY VENTILATOR
[2016-06-25 06:12] LABS: BASO% 0.3 % (0.0-0.8); EOS# 0.07 X1000 (0.0-0.7); EOS% 0.6 % (0.0-10.0); HEMATOCRIT 32.7 % (42.0-52.0); HEMOGLOBIN 11.2 g/dL (14.0-18.0); IMM GRAN# 0.04 X1000 (0.0-0.04); IMM GRAN% 0.4 % (0.0-0.5); LYMPH# 0.57 X1000 (1.2-3.4); LYMPH% 5.1 % (20.5-51.1); MCH 31.5 PG (27-31); MCHC 34.3 g/dL (33-37); MCV 92.1 FL (81-99); MONO# 0.89 X1000 (0.11-0.59); MONO% 7.9 % (1.7-9.3); MPV 13.4 FL (7.4-10.4); NEUT% 85.7 % (42.2-75.2); PLT 99 X1000 (130-400); RBC 3.55 XMIL (4.7-6.1)
[2016-06-25 06:24] LABS: AGAP 9; BUN 15 mg/dL (8-22); CALCIUM 7.9 mg/dL (8.8-10.2); CHLORIDE 103 mmol/L (98-107); COSMO 280; POTASSIUM 3.6 mmol/L (3.5-5.1); SODIUM 138 mmol/L (136-145); TCO2 26 mmol/L (25-35)
[2016-06-25 06:41] LABS: MANUAL DIFF NEEDED? NO
[2016-06-25] MEDS: OFIRMEV 1000 MG/ISOTONIC SOLN 100 ML IV SCH ×3 (06:53→18:43)
[2016-06-25] MEDS: MERREM 1 GM in NS 50 ML IV SCH ×3 (06:53→22:12)
[2016-06-25] MEDS: PROTONIX IV SCH ×2 (06:56→17:48)
[2016-06-25] MEDS: HEPARIN SUBQ SCH ×2 (07:30→15:28)
--- NOTE | 2016-06-25 07:38 | Diag Imaging Result Document ---
PROCEDURE NAME: CHEST-PORTABLE - 06/25/2016 PORTABLE CHEST X-RAY: COMPARISON: 06/24/2016. FINDINGS: Stable support lines and tubes in good position. There is continued improvement in aeration of the right lung. There is some worsening pulmonary vascular congestion or mild edema of the left lung. Heart size remains slightly enlarged. No pneumothorax. IMPRESSION: Mixed changes from prior with overall stability.
[2016-06-25] MEDS: MILK OF MAGNESIA NG SCH ×2 (08:16→20:42)
[2016-06-25] MEDS: NICODERM PATCH TD SCH (08:16)
[2016-06-25] MEDS: LANOXIN IV SCH (08:16)
[2016-06-25 10:13] LABS: BLOOD TYPE ARTERIAL; SAMPLE BLOOD
[2016-06-25 10:16] LABS: ALLEN TEST NO; BE 5.8 mmoll (-3.0-3.0); DRAW SITE R BRACHIAL; METHB 1.2 % (0.0-1.5); O2(CT) 21.1 mL/dL (15.0-23.0); PCO2(98.6) 40 mmHg (35-45); PO2(98.6) 73 mmHg (60-100); SAO2 95.9 % (95.0-100.0); pH(98.6) 7.48 (7.35-7.45)
[2016-06-25 10:17] LABS: MODALITY VENTILATOR
[2016-06-25] MEDS: CARDIZEM 100 MG/NS 100 ML IV SCH ×2 (11:56→16:33)
[2016-06-25] MEDS: LEVAQUIN 750 MG/D5W 150 ML IV SCH (13:43)
[2016-06-25 15:05] LABS: ALLEN TEST NO; BE 8.1 mmoll (-3.0-3.0); BLOOD TYPE ARTERIAL; DRAW SITE R BRACHIAL; METHB 1.1 % (0.0-1.5); O2(CT) 20.3 mL/dL (15.0-23.0); PCO2(98.6) 44 mmHg (35-45); PO2(98.6) 67 mmHg (60-100); SAMPLE BLOOD; SAO2 95.4 % (95.0-100.0); THB 15.5 g/dL (11.5-17.4); pH(98.6) 7.48 (7.35-7.45)
[2016-06-25 15:06] LABS: MODALITY COOL AEROSOL
[2016-06-25] MEDS: VANCOMYCIN 2 GM in NS 500 ML IV SCH (17:12)
[2016-06-25] MEDS: SODIUM CHLORIDE 0.9% INJ SCH (17:48)
[2016-06-25] MEDS: NORCO-10 PO PRN (20:00)
[2016-06-25] MEDS: MORPHINE IV PRN ×2 (20:00→22:08)
[2016-06-25] MEDS: NS 500 ML IV SCH (22:10)
[2016-06-26] MEDS: NORCO-10 PO PRN ×2 (00:28→19:49)
[2016-06-26] MEDS: CARDIZEM 100 MG/NS 100 ML IV SCH ×4 (00:29→19:50)
[2016-06-26] MEDS: HEPARIN SUBQ SCH ×3 (00:30→15:42)
[2016-06-26] MEDS: OFIRMEV 1000 MG/ISOTONIC SOLN 100 ML IV SCH ×4 (00:35→19:00)
[2016-06-26] MEDS: DUONEB (A & A) INH SCH ×6 (03:33→23:34)
[2016-06-26] MEDS: MERREM 1 GM in NS 50 ML IV SCH ×3 (05:03→21:27)
[2016-06-26] MEDS: PROTONIX IV SCH ×2 (05:03→18:12)
[2016-06-26 05:34] LABS: ALLEN TEST YES; BE 7.4 mmoll (-3.0-3.0); BLOOD TYPE ARTERIAL; DRAW SITE R RADIAL; METHB 1.4 % (0.0-1.5); O2(CT) 12.4 mL/dL (15.0-23.0); PCO2(98.6) 48 mmHg (35-45); PO2(98.6) 51 mmHg (60-100); SAMPLE BLOOD; SAO2 88.1 % (95.0-100.0); THB 10.3 g/dL (11.5-17.4); pH(98.6) 7.44 (7.35-7.45)
[2016-06-26 05:35] LABS: MODALITY COOL AEROSOL
--- NOTE | 2016-06-26 08:11 | Diag Imaging Result Document ---
PROCEDURE NAME: CHEST-PORTABLE - 06/26/2016 SINGLE FRONTAL RADIOGRAPH OF THE CHEST: COMPARISON: 06/25/2016. FINDINGS: Dual right chest tubes are stable. A right central line is stable. An NG tube projects below the diaphragm and out of the field of view. There is a small amount of stable subcutaneous emphysema overlying the right chest wall. Metallic clips project over the right chest wall. Prominent central vasculature indicating pulmonary venous congestion is essentially stable given differences in exposure. Bilateral increased interstitial markings suggesting edema is essentially stable on the right and is perhaps marginally worse on the left. This may be due to differences in exposure, however. There is stable cardiomegaly. IMPRESSION: Perhaps slight worsening of interstitial edema on the left. Otherwise, the chest is essentially stable.
[2016-06-26] MEDS: MILK OF MAGNESIA NG SCH ×2 (08:48→21:25)
[2016-06-26] MEDS: LANOXIN IV SCH (08:49)
[2016-06-26] MEDS: NICODERM PATCH TD SCH (08:49)
[2016-06-26 09:21] LABS: BASO% 0.2 % (0.0-0.8); EOS# 0.19 X1000 (0.0-0.7); EOS% 1.6 % (0.0-10.0); HEMOGLOBIN 11.9 g/dL (14.0-18.0); IMM GRAN# 0.06 X1000 (0.0-0.04); IMM GRAN% 0.5 % (0.0-0.5); LYMPH# 0.39 X1000 (1.2-3.4); LYMPH% 3.2 % (20.5-51.1); MANUAL DIFF NEEDED? YES; MCH 31.1 PG (27-31); MCHC 33.1 g/dL (33-37); MONO# 1.12 X1000 (0.11-0.59); MONO% 9.3 % (1.7-9.3); MPV 11.4 FL (7.4-10.4); NEUT% 85.2 % (42.2-75.2); PLT 115 X1000 (130-400); RBC 3.83 XMIL (4.7-6.1)
[2016-06-26 09:54] LABS: AGAP 12; BUN 15 mg/dL (8-22); CALCIUM 8.1 mg/dL (8.8-10.2); CHLORIDE 106 mmol/L (98-107); COSMO 291; POTASSIUM 4.2 mmol/L (3.5-5.1); SODIUM 143 mmol/L (136-145); TCO2 25 mmol/L (25-35)
[2016-06-26 11:05] LABS: BANDS 2 % (0-1); EOS 4 % (1-10); LYMPHS 4 % (21-51); MONO 6 % (1-9)
[2016-06-26] MEDS: VANCOMYCIN 2 GM in NS 500 ML IV SCH (11:14)
[2016-06-26] MEDS: LEVAQUIN 750 MG/D5W 150 ML IV SCH (13:44)
[2016-06-26] MEDS: SODIUM CHLORIDE 0.9% INJ SCH (18:12)
[2016-06-26] MEDS: MORPHINE IV PRN (19:49)
[2016-06-26] MEDS: PATIENT'S OWN MED PO SCH ×2 (21:26→21:27)
[2016-06-27] MEDS: HEPARIN SUBQ SCH ×3 (00:45→16:11)
[2016-06-27] MEDS: CARDIZEM 100 MG/NS 100 ML IV SCH ×2 (00:45→21:29)
[2016-06-27] MEDS: OFIRMEV 1000 MG/ISOTONIC SOLN 100 ML IV SCH ×3 (00:45→11:33)
[2016-06-27] MEDS: DUONEB (A & A) INH SCH ×6 (03:19→23:31)
[2016-06-27 04:48] LABS: ALLEN TEST YES; BLOOD TYPE ARTERIAL; DRAW SITE R RADIAL; METHB 1.2 % (0.0-1.5); MODALITY CANNULA; O2(CT) 14.9 mL/dL (15.0-23.0); PCO2(98.6) 49 mmHg (35-45); PO2(98.6) 70 mmHg (60-100); SAMPLE BLOOD; SAO2 95.5 % (95.0-100.0); THB 11.4 g/dL (11.5-17.4); pH(98.6) 7.44 (7.35-7.45)
[2016-06-27 05:14] LABS: MANUAL DIFF NEEDED? NO
[2016-06-27 05:20] LABS: BASO% 0.4 % (0.0-0.8); EOS# 0.21 X1000 (0.0-0.7); EOS% 2.2 % (0.0-10.0); HEMATOCRIT 32.5 % (42.0-52.0); HEMOGLOBIN 10.7 g/dL (14.0-18.0); LYMPH# 0.59 X1000 (1.2-3.4); LYMPH% 6.1 % (20.5-51.1); MCH 30.9 PG (27-31); MCHC 32.9 g/dL (33-37); MCV 93.9 FL (81-99); MONO# 1.02 X1000 (0.11-0.59); MONO% 10.5 % (1.7-9.3); MPV 11.9 FL (7.4-10.4); NEUT% 79.8 % (42.2-75.2); PLT 121 X1000 (130-400); RBC 3.46 XMIL (4.7-6.1)
[2016-06-27] MEDS: VANCOMYCIN 2 GM in NS 500 ML IV SCH ×2 (05:24→22:08)
[2016-06-27] MEDS: PROTONIX IV SCH (05:32)
[2016-06-27] MEDS: MERREM 1 GM in NS 50 ML IV SCH ×3 (05:32→22:08)
[2016-06-27 05:39] LABS: AGAP 7; BUN 14 mg/dL (8-22); CALCIUM 8.1 mg/dL (8.8-10.2); CHLORIDE 106 mmol/L (98-107); COSMO 286; POTASSIUM 3.8 mmol/L (3.5-5.1); SODIUM 142 mmol/L (136-145); TCO2 29 mmol/L (25-35)
--- NOTE | 2016-06-27 06:28 | Diag Imaging Result Document ---
PROCEDURE NAME: CHEST-PORTABLE - 06/27/2016 PORTABLE CHEST: COMPARISON: Compared to 06/26/2016. FINDINGS: No change in the right jugular line. There are right lateral skin dari and there is a right-sided chest tube. No pneumothorax identified. Sternal wires are present. The heart remains mildly prominent. No pleural effusions identified. Mild increased interstitial markings may represent mild pulmonary edema. Questionable infiltrate in the left base. IMPRESSION: Development of mild pulmonary edema. [facility]
[2016-06-27] MEDS: LANOXIN IV SCH (08:25)
[2016-06-27] MEDS: NICODERM PATCH TD SCH (08:25)
[2016-06-27] MEDS: MILK OF MAGNESIA NG SCH ×2 (08:25→20:09)
[2016-06-27] MEDS: LEVAQUIN 750 MG/D5W 150 ML IV SCH (13:40)
[2016-06-27] MEDS: LASIX IV SCH ×2 (13:40→20:10)
[2016-06-27] MEDS: GLUCOPHAGE PO SCH (16:11)
[2016-06-27] MEDS: PATIENT'S OWN MED PO SCH ×2 (20:10)
[2016-06-27] MEDS: NORCO-10 PO PRN (22:08)
[2016-06-28] MEDS: HEPARIN SUBQ SCH ×3 (00:15→15:48)
[2016-06-28] MEDS: DUONEB (A & A) INH SCH ×6 (03:45→23:24)
[2016-06-28] MEDS: CARDIZEM 100 MG/NS 100 ML IV SCH ×2 (05:16→13:58)
[2016-06-28] MEDS: MERREM 1 GM in NS 50 ML IV SCH ×3 (05:16→22:05)
[2016-06-28] MEDS: PRILOSEC PO SCH (06:17)
[2016-06-28 07:44] LABS: ALLEN TEST YES; BE 13.6 mmoll (-3.0-3.0); BLOOD TYPE ARTERIAL; DRAW SITE R RADIAL; O2(CT) 15.9 mL/dL (15.0-23.0); PO2(98.6) 74 mmHg (60-100); SAMPLE BLOOD; SAO2 96.4 % (95.0-100.0); pH(98.6) 7.49 (7.35-7.45)
[2016-06-28 07:46] LABS: MODALITY VENTIMASK; PCO2(98.6) 51 mmHg (35-45)
[2016-06-28] MEDS: GLUCOPHAGE PO SCH ×2 (08:00→18:03)
[2016-06-28] MEDS: NICODERM PATCH TD SCH (08:01)
[2016-06-28] MEDS: MILK OF MAGNESIA NG SCH ×2 (08:01→20:35)
[2016-06-28] MEDS: LASIX IV SCH (08:01)
[2016-06-28] MEDS: LANOXIN IV SCH (08:01)
--- NOTE | 2016-06-28 09:22 | Diag Imaging Result Document ---
PROCEDURE NAME: CHEST-PORTABLE - 06/28/2016 PORTABLE CHEST X-RAY: COMPARISON: 06/27/2016. FINDINGS: There is a single right chest tube in good position. No pneumothorax. Stable right central line. There is continued, decreased infiltrate or edema in the lungs bilaterally. No new infiltrates. Heart size remains slightly enlarged. No significant pneumothorax. IMPRESSION: Improvement from prior. No complication.
[2016-06-28] MEDS ORDERED: LANOXIN IV ONE (09:45)
[2016-06-28 11:07] LABS: AGAP 13; ALBUMIN 2.7 g/dL (3.5-5.0); ALKALINE PHOSPHATASE 222 U/L (32-122); BUN 17 mg/dL (8-22); CALCIUM 8.3 mg/dL (8.8-10.2); CHLORIDE 99 mmol/L (98-107); COSMO 296; DIRECT BILIRUBIN < 0.20 mg/dL (0.00-0.20); GOT 44 U/L (10-34); GPT 58 U/L (10-44); POTASSIUM 4.5 mmol/L (3.5-5.1); SODIUM 145 mmol/L (136-145); TCO2 33 mmol/L (25-35); TOTAL PROTEIN 4.6 g/dL (6.3-8.3)
[2016-06-28] MEDS ORDERED: ALBUMIN 25% IV ONE (11:28)
[2016-06-28] MEDS: LEVAQUIN 750 MG/D5W 150 ML IV SCH (13:19)
[2016-06-28] MEDS: NORCO-10 PO PRN (17:32)
[2016-06-28] MEDS: VANCOMYCIN 2 GM in NS 500 ML IV SCH (20:35)
[2016-06-28] MEDS: PATIENT'S OWN MED PO SCH ×2 (22:00)
[2016-06-29] MEDS: CARDIZEM 100 MG/NS 100 ML IV SCH ×2 (00:15→10:16)
[2016-06-29] MEDS: HEPARIN SUBQ SCH ×3 (00:38→17:31)
[2016-06-29] MEDS: DUONEB (A & A) INH SCH ×6 (03:26→22:48)
[2016-06-29] MEDS: MERREM 1 GM in NS 50 ML IV SCH ×3 (06:00→21:30)
[2016-06-29] MEDS: PRILOSEC PO SCH (06:01)
[2016-06-29 07:26] LABS: MANUAL DIFF NEEDED? NO
[2016-06-29 07:32] LABS: BASO% 0.7 % (0.0-0.8); EOS# 0.19 X1000 (0.0-0.7); EOS% 2.2 % (0.0-10.0); HEMATOCRIT 33.6 % (42.0-52.0); HEMOGLOBIN 10.7 g/dL (14.0-18.0); IMM GRAN# 0.18 X1000 (0.0-0.04); IMM GRAN% 2.1 % (0.0-0.5); LYMPH# 0.85 X1000 (1.2-3.4); LYMPH% 9.8 % (20.5-51.1); MCH 30.7 PG (27-31); MCHC 31.8 g/dL (33-37); MCV 96.3 FL (81-99); MONO# 1.03 X1000 (0.11-0.59); MONO% 11.9 % (1.7-9.3); MPV 11.6 FL (7.4-10.4); NEUT% 73.3 % (42.2-75.2); PLT 169 X1000 (130-400); RBC 3.49 XMIL (4.7-6.1)
[2016-06-29 07:42] LABS: MAGNESIUM 2.3 mg/dL (1.5-2.7)
--- NOTE | 2016-06-29 08:29 | Diag Imaging Result Document ---
PROCEDURE NAME: CHEST-PORTABLE - 06/29/2016 SINGLE FRONTAL RADIOGRAPH OF CHEST: COMPARISON: 06/28/2016. FINDINGS: Right central line is in stable position. There has been interval removal of the right chest tube. There is a small residual pneumothorax at the right lung apex that appears to be less than 15% of the right chest cavity. Mild interstitial edema and pulmonary venous congestion continues to improve, slightly. No new consolidations are identified. Cardiac silhouette is stable. IMPRESSION: 1. Interval removal of the right chest tube with a small right apical residual pneumothorax, as described. 2. Continued slight improvement of mild interstitial edema.
[2016-06-29] MEDS: GLUCOPHAGE PO SCH ×2 (08:35→17:31)
[2016-06-29] MEDS: NICODERM PATCH TD SCH (08:35)
[2016-06-29] MEDS: MILK OF MAGNESIA NG SCH ×2 (08:36→21:30)
[2016-06-29] MEDS ORDERED: LANOXIN IV SCH (09:00)
[2016-06-29] MEDS: NEUTRA-PHOS PO SCH ×2 (09:43→17:32)
[2016-06-29] MEDS: CARDIZEM CD PO SCH (12:35)
[2016-06-29] MEDS: LASIX IV SCH (12:35)
[2016-06-29] MEDS: VANCOMYCIN 2 GM in NS 500 ML IV SCH (13:22)
[2016-06-29] MEDS: LEVAQUIN 750 MG/D5W 150 ML IV SCH (13:23)
[2016-06-29] MEDS: PATIENT'S OWN MED PO SCH ×2 (21:30)
[2016-06-30] MEDS: DUONEB (A & A) INH SCH ×6 (03:27→23:08)
[2016-06-30] MEDS: MORPHINE IV PRN ×2 (04:49→23:28)
[2016-06-30] MEDS: HEPARIN SUBQ SCH ×3 (04:51→21:00)
[2016-06-30 06:19] LABS: MANUAL DIFF NEEDED? NO
[2016-06-30 06:22] LABS: BASO% 0.8 % (0.0-0.8); EOS# 0.18 X1000 (0.0-0.7); EOS% 2.3 % (0.0-10.0); HEMATOCRIT 34.5 % (42.0-52.0); HEMOGLOBIN 11.3 g/dL (14.0-18.0); IMM GRAN# 0.21 X1000 (0.0-0.04); IMM GRAN% 2.7 % (0.0-0.5); LYMPH# 0.88 X1000 (1.2-3.4); LYMPH% 11.4 % (20.5-51.1); MCH 31.1 PG (27-31); MCHC 32.8 g/dL (33-37); MONO# 0.99 X1000 (0.11-0.59); MONO% 12.8 % (1.7-9.3); MPV 11.3 FL (7.4-10.4); PLT 185 X1000 (130-400); RBC 3.63 XMIL (4.7-6.1)
[2016-06-30] MEDS: MERREM 1 GM in NS 50 ML IV SCH (06:23)
[2016-06-30] MEDS: PRILOSEC PO SCH (06:24)
[2016-06-30 06:44] LABS: AGAP 10; BUN 19 mg/dL (8-22); CALCIUM 9.4 mg/dL (8.8-10.2); CHLORIDE 98 mmol/L (98-107); COSMO 286; MAGNESIUM 2.4 mg/dL (1.5-2.7); POTASSIUM 4.7 mmol/L (3.5-5.1); SODIUM 141 mmol/L (136-145); TCO2 33 mmol/L (25-35)
[2016-06-30] MEDS: CARDIZEM CD PO SCH (08:17)
[2016-06-30] MEDS: NICODERM PATCH TD SCH (08:17)
[2016-06-30] MEDS: MILK OF MAGNESIA NG SCH ×2 (08:17→21:02)
[2016-06-30] MEDS: GLUCOPHAGE PO SCH (08:17)
[2016-06-30] MEDS: LASIX IV SCH (08:17)
--- NOTE | 2016-06-30 10:08 | Diag Imaging Result Document ---
PROCEDURE NAME: CHEST-PORTABLE - 06/30/2016 SINGLE FRONTAL RADIOGRAPH OF THE CHEST: COMPARISON: 06/29/2016. FINDINGS: Right central line is stable. The small right apical pneumothorax continues to decrease in size. No new consolidation is identified. Mild interstitial thickening bilaterally is unchanged. Cardiac silhouette is stable. IMPRESSION: Continued decrease in size of the tiny right apical pneumothorax. Stable chest, otherwise.
[2016-06-30] MEDS: LEVAQUIN PO SCH (11:10)
[2016-06-30] MEDS ORDERED: LASIX IV ONE (16:00)
[2016-06-30] MEDS: PRAVACHOL PO SCH (21:44)
[2016-06-30] MEDS: PATIENT'S OWN MED PO SCH ×2 (21:44)
[2016-07-01] MEDS: DUONEB (A & A) INH SCH ×6 (03:42→22:51)
[2016-07-01] MEDS: HEPARIN SUBQ SCH ×3 (05:13→20:24)
[2016-07-01] MEDS: PRILOSEC PO SCH ×2 (05:13→06:13)
--- NOTE | 2016-07-01 06:26 | PROGRESS NOTE ---
DATE: 07/01/2016 SUBJECTIVE: Patient doing okay this morning. He denies any respiratory issues. Nursing staff reports no major issues. He has been transported up to the [facility]. I reviewed his notes through the hospital course since the start of my vacation. OBJECTIVE: Vital signs: The patient is currently afebrile. His vital signs have been stable. O2 saturations currently 97% on 2 L nasal cannula. General exam: No acute distress. Alert, interactive, male. Looks stated age. Chest and lungs: Equal bilaterally. Chest wall incision is clean, dry, and intact. Downs in place. Chest tubes have been removed. LABORATORY: Reviewed from his stay. No current labs. Microbiology reviewed. ASSESSMENT AND PLAN: A 71-year-old male, status post right upper lobe lobectomy. Postoperative status: His respiratory status appears to have stabilized. We will continue to monitor. I have put in an order for clinical social work therapist to evaluate for rehab bed. I will defer antibiotics to pulmonary at this time. He seems to be making improvement overall. Once all consultants agree, we will plan on discharge to rehab facility. [facility]
[2016-07-01] MEDS: NICODERM PATCH TD SCH ×2 (08:41→09:27)
[2016-07-01] MEDS: LASIX IV SCH (08:41)
[2016-07-01] MEDS: LEVAQUIN PO SCH (08:41)
[2016-07-01] MEDS: MILK OF MAGNESIA NG SCH ×2 (08:41→20:24)
[2016-07-01] MEDS: GLUCOPHAGE PO SCH ×2 (08:41→17:26)
[2016-07-01] MEDS: CARDIZEM CD PO SCH (08:41)
--- NOTE | 2016-07-01 09:32 | PROGRESS NOTE ---
DATE: 07/01/2016 CHIEF COMPLAINT: Irregular heartbeat, postoperative chest pain, shortness of breath. SUBJECTIVE: Mr. Sapp has been transferred to [facility]. He is now in sinus rhythm with sinus tachycardia. His chest pain is much better. Overall he feels like he has improved a great deal. OBJECTIVE: Blood pressure is 153/61, temperature 97.6, pulse 85, respirations 24. He is awake, alert and oriented. He is eating breakfast. HEENT is unremarkable. Chest: Diminished breath sounds over the right lung field. Left lung field is much clearer. Heart sounds regular and rhythmic. No gallop or murmur. Abdomen is nontender. Extremities showed no edema. Neurologic: He moves all 4 extremities. He has no deficit. DIAGNOSTIC DATA: Blood work today shows his hemoglobin is 11.3. Sodium is 141 , potassium 4.7, BUN is 19, creatinine 0.6. IMPRESSION: 1. The patient is status post thoracotomy for right upper lobectomy secondary to cancer. 2. Paroxysmal atrial fibrillation, postoperative. 3. s/p Bioprosthetic aortic valve replacement. RECOMMENDATIONS: At this point in time, we will continue present medical therapy. We are going to cut down on his nicotine patches. We will put him on low dose metoprolol. We will continue present medical therapy and follow him accordingly. [facility]
[2016-07-01] MEDS: LOPRESSOR PO SCH ×3 (09:40→20:24)
[2016-07-01] MEDS: PRAVACHOL PO SCH (20:24)
[2016-07-01] MEDS: PATIENT'S OWN MED PO SCH ×2 (21:15)
[2016-07-02] MEDS: DUONEB (A & A) INH SCH ×4 (04:06→16:06)
[2016-07-02] MEDS: NORCO-10 PO PRN (04:14)
[2016-07-02] MEDS: LOPRESSOR PO SCH ×3 (04:14→14:59)
[2016-07-02] MEDS: HEPARIN SUBQ SCH ×2 (04:15→11:38)
[2016-07-02] MEDS: NICODERM PATCH TD SCH (04:16)
[2016-07-02] MEDS: PRILOSEC PO SCH (06:12)
--- NOTE | 2016-07-02 08:29 | Diag Imaging Result Document ---
PROCEDURE NAME: CHEST-1 VIEW - 07/02/2016 SINGLE FRONTAL RADIOGRAPH OF THE CHEST: COMPARISON: 06/30/2016. FINDINGS: Left central line appears stable. There has been interval removal of the skin dari overlying the right chest wall. The right apical pneumothorax continues to decrease and is now barely perceptible. Interstitial thickening bilaterally has improved. Cardiac silhouette is stable. IMPRESSION: 1. Continued decrease in the right apical pneumothorax to near resolution. 2. Improvement of interstitial thickening.
--- NOTE | 2016-07-02 08:41 | PROGRESS NOTE ---
DATE: 07/02/2016 CHIEF COMPLAINT: Irregular heartbeat status-post thoracotomy. SUBJECTIVE: Mr. Sharan Sapp is generally doing better. His rhythm is back to sinus. He is not having much chest pain. He is feeling really much more comfortable. OBJECTIVE: Vital signs: Blood pressure is 145/62, temperature 91, pulse 89, and respirations 20. General: He is awake, alert, oriented, and in no distress. HEENT: Unremarkable. Respiratory: The chest shows better breath sounds bilaterally. Somewhat diminished on the right side. Occasional rhonchi. Cardiovascular: Heart sounds are regular and rhythmic. No gallop or murmur. No rub. Gastrointestinal: The abdomen is nontender. Extremities: The extremities show no edema. Neurological: He follows commands and moves all extremities. Blood work shows that his glucose is 158. His chemistry from yesterday was all normal. His hemoglobin from yesterday was good. IMPRESSION: 1. The patient is status-post thoracotomy for lung cancer. 2. Paroxysmal atrial fibrillation. 3. Status-post bioprosthetic aortic valve. RECOMMENDATION: The patient is clinically much better. I would keep him on the present doses of beta chevy, calcium blockers, and he can probably be transferred to a rehab facility once a bed is ready for him. He will have to make arrangements for follow up with us at the office. Thank you again for the opportunity to participate in his evaluation.
[2016-07-02] MEDS: MILK OF MAGNESIA NG SCH (08:50)
[2016-07-02] MEDS: GLUCOPHAGE PO SCH ×2 (08:50→17:07)
[2016-07-02] MEDS: CARDIZEM CD PO SCH (08:50)
[2016-07-02] MEDS: LASIX IV SCH (08:50)
[2016-07-02] MEDS: LEVAQUIN PO SCH (08:50)
--- NOTE | 2016-07-02 11:34 | PROGRESS NOTE ---
DATE: 07/02/2016 SUBJECTIVE: The patient doing okay. Some confusion reported by the nursing staff, but no major issues overnight. OBJECTIVE: Vital Signs: Patient is currently afebrile. His vital signs have been stable. General: No acute distress. Alert and interactive. Lungs: Equal bilaterally. Chest wall incision is clean, dry, and intact. Dari in place. LABORATORY: Reviewed from yesterday. ASSESSMENT AND PLAN: A 71-year-old male status post right upper lobe lobectomy. POSTOPERATIVE STATUS: At this point, patient's respiratory status is stabilized. Suspect once rehab bed becomes available, we would be able to send him if consultants agree. At this time, we will have nursing staff remove the dari and place Steri-Strips on his incision. At this point, overall progress has been made and just awaiting rehab placement.
--- NOTE | 2016-07-02 14:46 | DISCHARGE SUMMARY ---
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 DISCHARGE DIAGNOSES: 1. Status post right upper lobe resection. 2. Paroxysmal atrial fibrillation. ADMITTING PHYSICIAN: Dr. Manuel Quinones. CONSULTS: Dr. Wagner with Pulmonology, Dr. Post with Cardiology. PROCEDURES: On 06/21/2016, the patient underwent open right upper lobe resection. BRIEF HISTORY AND COURSE OF STAY: Patient is a 71-year-old male, admitted with biopsy- proven lung cancer. He underwent previously described procedure. He initially was transported to the ICU. On postoperative day 1, he had some respiratory issues and was reintubated. On postoperative day 1, he also developed atrial fibrillation. The patient was evaluated by both Pulmonology and Cardiology for these issues. He made improvements and was eventually transferred up to the CICU where he continued to show improvement. On the day of discharge, he was up and ambulating with physical therapy, tolerating a regular diet. He had a series of chest x-rays which showed resolutions of a small apical pneumothorax that was related to a surgical resection. He had his chest tube removed without complication. He was doing well and was felt to be safe to be discharged to a rehab facility given his significant deconditioning. Arrangements were made for him to go to [facility]. DISCHARGE CONDITION: Is stable. DISPOSITION: The patient being discharged to rehab for physician at the facility followup. Patient to follow to follow up with Cardiology and myself in 1-2 weeks. MEDICATIONS: Patient was given medications to be continued at the facility.
[2016-07-02 15:47] VITALS: BP 132/105
== END 2016-07-02 18:10 | DRG 163 ==
LOC: SURHOLD 03:28 → ICU 12:36 → 3S 06-30 22:19
PROVIDERS: ADMIT Surgery; ATTEND Surgery
PROC: 0BTC0ZZ Resection of Right Upper Lung Lobe, Open Approach (ICD-10-PCS; principal; 2016-06-21 07:03)
PROC: 5A1945Z Respiratory Ventilation, 24-96 Consecutive Hours (ICD-10-PCS; 2016-06-22)
PROC: 05HM33Z Insertion of Infusion Device into Right Internal Jugular Vein, Percutaneous Approach (ICD-10-PCS; 2016-06-22)
PROC: 0BH17EZ Insertion of Endotracheal Airway into Trachea, Via Natural or Artificial Opening (ICD-10-PCS; 2016-06-22)
DX: C34.11 Malignant neoplasm of upper lobe, right bronchus or lung (principal); J95.821 Acute postprocedural respiratory failure; E87.70 Fluid overload, unspecified; J93.9 Pneumothorax, unspecified; J44.9 Chronic obstructive pulmonary disease, unspecified; E11.9 Type 2 diabetes mellitus without complications; I25.10 Atherosclerotic heart disease of native coronary artery without angina pectoris; I10 Essential (primary) hypertension; E78.5 Hyperlipidemia, unspecified; I48.0 Paroxysmal atrial fibrillation; I45.10 Unspecified right bundle-branch block; K59.00 Constipation, unspecified; K21.9 Gastro-esophageal reflux disease without esophagitis; F31.9 Bipolar disorder, unspecified; F17.210 Nicotine dependence, cigarettes, uncomplicated; Z79.899 Other long term (current) drug therapy; Z79.82 Long term (current) use of aspirin; Z79.84 Long term (current) use of oral hypoglycemic drugs; Z95.2 Presence of prosthetic heart valve; Z95.1 Presence of aortocoronary bypass graft
CPT/HCPCS: 71010; 71275; 74020; 80048; 80053; 80076; 80162; 80202; 81001; 82550; 82553; 82805; 82948; 83735; 83880; 84100; 84484; 85025; 86850; 86900; 86901; 87070; 87205; 88309; 93005; 93010; 94002; 94003; 94640; 94761; 94762; 94799; C1758; C2615; C9113; C9290; J0131; J0330; J0690; J1100; J1160; J1170; J1644; J1940; J2185; J2250; J2270; J2405; J3010; J3370; J7030; J7040; J7120; P9047; Q9967; 97110-GP; 97116-GP; 97530-GP; J2710; S0164

== ENCOUNTER 2016-07-21 09:11 | Emergency (ER) ==
[2016-07-21] MEDS ORDERED: CARDIZEM IV ONE ×2 (09:32→10:04)
[2016-07-21] MEDS ORDERED: D5 1/2 NS 1,000 ML IV ONE (09:35)
--- NOTE | 2016-07-21 09:43 | PROVIDER DOCUMENTATION ---
HPI-Cardiac General - General Source: patient - History of Present Illness-Cardiac Location: reports: central Quality of Pain: reports: none Severity in ED: mild Onset/Duration: just prior to arrival Timing: still present Context/Activities at Onset: reports: light activity Modifying Factors: improves with: palpation Palpitation Quality: fast/pounding heart beat Prior Chest Pain/Cardiac Workup: reports: no prior chest pain Associated Symptoms: reports: shortness of breath Similar Symptoms Previously?: No Recently Seen Here or By Another Healthcare Provider: No <Chinyere Rivers - Last Filed: 07/21/16 11:15> <Bridger Rey - Last Filed: 07/21/16 11:20> - General Stated Complaint: SOB;TACHYCARDIA Time Seen by Provider: 07/21/16 09:20 Allergies/Adverse Reactions: Patient Allergies Allergy/AdvReac Type Severity Reaction Status Date / Time haloperidol [From Haldol] Allergy Unknown DIARRHEA Verified 05/08/16 08:07 haloperidol lactate * Allergy Unknown DIARRHEA Verified 05/08/16 08:07 [From Haldol] fluvoxamine maleate * Allergy DIARRHEA Verified 05/08/16 08:07 [From Luvox] Home Medications: Home Medication List Medication Instructions Recorded Confirmed Last Taken Type Aspirin EC 81 mg PO DAILY #0 tablet 06/27/14 06/21/16 06/16/16 Rx Metoprolol Succinate E.r. [Toprol 25 mg PO DAILY #30 tablet 06/27/14 06/21/16 04:30 Rx Xl] PRAVAstatin [Pravachol] 40 mg PO QPM #30 tablet 06/27/14 06/21/16 06/20/16 19: 30 Rx Clozapine 50 mg PO HS 06/17/16 06/21/16 06/20/16 19:30 History Clozapine 400 mg PO HS 06/17/16 06/21/16 06/20/16 19:30 History Diltiazem HCl [Diltiazem ER] 120 mg PO DAILY 06/17/16 06/21/16 06/20/16 07:30 History Glipizide 10 mg PO DAILY 06/17/16 06/21/16 06/20/16 07:30 History Iron,Carbonyl/Vit C/Vit B12/FA 1 each PO DAILY 06/17/16 06/21/1617 07:30 History [Iron 100 Plus Tablet] Isosorbide Mononitrate [Isosorbide 30 mg PO DAILY 06/17/16 06/21/16 06/20/16 07: 30 History Mononitrate ER] Losartan Potassium 25 mg PO DAILY 06/17/16 06/21/16 06/20/16 07:30 History Pantoprazole [Protonix] 40 mg PO HS 06/17/16 06/21/16 06/20/16 19:30 History Albuterol 2.5MG/Ipratrop 0.5MG 3 ml INH RTQ4H #0 neb 07/02/16 Unknown Rx [Duoneb (A & A)] Diltiazem C.d. [Cardizem Cd] 180 mg PO DAILY #0 capsule 07/02/16 Unknown Rx Hydrocodone/APAP 10 mg/325 mg 1 each PO Q4H PRN PRN #0 tablet 07/02/16 Unknown Rx [Glidden-10] Levofloxacin [Levaquin] 500 mg PO DAILY #0 tablet 07/02/16 Unknown Rx Magnesium Hydroxide [Milk of 30 ml PO BID #0 udc 07/02/16 Unknown Rx Magnesia] Metformin [Glucophage] 500 mg PO BID CC #0 tablet 07/02/16 Unknown Rx Metoprolol [Lopressor] 12.5 mg PO Q6H #0 tablet 07/02/16 Unknown Rx Nicotine Patch [Nicoderm Patch] 14 mg TD DAILY #0 patch.td24 07/02/16 Unknown Rx Omeprazole [Prilosec] 40 mg PO DAILY@0700 #0 capsule 07/02/16 Unknown Rx PRAVAstatin [Pravachol] 20 mg PO HS #0 tablet 07/02/16 Unknown Rx Patient's Own Med 2 each PO HS #0 misc 07/02/16 Unknown Rx Patient's Own Med 4 each PO HS #0 misc 07/02/16 Unknown Rx Apixaban [Eliquis] 5 mg PO BID #60 tablet 07/21/16 Unknown Rx Diltiazem HCl [Diltiazem ER] 240 mg PO DAILY #30 tab.er.24h 07/21/16 Unknown Rx - History of Present Illness-Cardiac Nature of Presenting Problem: Pt is a 71 yom who came to the ED with a cc of SOB and a-fib. Pt reports he was at rehab after his partial pneumonectomy when he got short of breath and felt like he was in A-fib. (Chinyere Rivers) Review of Systems - Adult - REVIEW OF SYSTEMS - ADULT Constitutional: denies: chills, fever Cardiovascular: reports: other (tachycardia). denies: orthopnea, poor circulation Respiratory: reports: shortness of breath. denies: cough, dyspnea on exertion, wheezing Gastrointestinal: denies: diarrhea, nausea, vomiting <Chinyere Rivers - Last Filed: 07/21/16 11:15> Past History - Adult - PAST MEDICAL HISTORY-ADULT Review of Records: reports: Old Records Reviewed, Nursing Assessment Review Major Childhood Illnesses: reports: denies history Cardiovascular: reports: HTN Respiratory: reports: cancer (lung) Gastrointestinal: reports: denies history Obstetrical/Gynecological: reports: denies history Genitourinary: reports: denies history Musculoskeletal: reports: denies history Neurological: reports: denies history Endocrine/Immune: reports: Diabetes Other Conditions: reports: denies history - IMMUNIZATION STATUS Childhood Immunizations: See Nurse Assessment Flu Vaccine: See Nurse Assessment - FAMILY HISTORY Family History: reviewed, not pertinent <Chinyere Rivers - Last Filed: 07/21/16 11:15> Physical Exam-General - PHYSICAL EXAM-ADULT Initial Vital Signs Reviewed: Yes - CONSTITUTIONAL General Appearance: appears well, alert, no apparent distress - EYES Eyes: PERRL/EOMI, pink conjunctivae, fundi clear, no AV nicking - HEAD, EARS, NOSE, MOUTH & THROAT HENMT: normocephalic/atraumatic, moist mucous membranes, normal ENT inspection - NECK Neck: non-tender - RESPIRATORY Respiratory: chest non-tender, rhonchi - CARDIOVASCULAR Cardiovascular: tachycardia - GASTROINTESTINAL (ABDOMEN) Abdominal Exam: non tender, soft - LYMPHATIC Lymphatic: no adenopathy - MUSCULOSKELETAL Back Exam: normal inspection, no CVA tenderness Extremity: normal range of motion, non-tender - SKIN Integumentary: normal color, normal turgor, warm/dry - NEUROLOGIC Neurologic: grossly normal - PSYCHIATRIC Psych/Mental Status: normal mood/affect, normal thought content, normal thought process, oriented x 3 <Chinyere Rivers - Last Filed: 07/21/16 11:15> Progress - EKG 1 Time of EKG reading by physician:: 08:18 EKG Read and Signed by:: Bridger Rey EKG Interpretation (*Must complete 3 of following elements*): Abnormal Rate: 118 (septal infarct) Rhythm: atrial fibrillation with rapid ventricular response QRS: RBB <Chinyere Rivers - Last Filed: 07/21/16 11:15> <Bridger Rey - Last Filed: 07/21/16 11:20> - PLAN OF CARE/RESULTS Progress/Plan/Lab Results: Orders Category Date Time Status CBC WITH ELECTRONIC DIFF [HEME] Stat Lab 07/21/16 09:33 Uncollected Diltiazem [Cardizem] Med 07/21/16 09:32 Discontinued 10 mg IV NOW ONE (Chinyere Rivers) Departure - Departure Time of Disposition Order: 11:15 Certified Medical Emergency: Emergent <Chinyere Rivers - Last Filed: 07/21/16 11:15> - Departure Time of Disposition Order: 11:16 Certified Medical Emergency: Emergent <Bridger Rey - Last Filed: 07/21/16 11:20> - Departure DIAGNOSIS: A-fib Qualifiers: Atrial fibrillation type: persistent Qualified Code(s): I48.1 - Persistent atrial fibrillation Disposition: HOME 01 Condition: Stable Additional Instructions: callled senior living and they agreed to take him back on higher dose of diltiazem and eliquis ED Follow Up Instructions: You have been treated by a care provider in the Emergency Department. These instructions are being provided to you so you can have an understanding of how to care for yourself upon discharge. Upon discharge from the Emergency Department, you are responsible for making arrangements for follow-up care by a physician of your choice. Take all prescribed medications as directed. Return to the Emergency Department immediately for any new or worsening symptoms. You may call the Physician Referral phone number at [phone] to obtain a list of Physicians who are taking new patients. Prescriptions: Diltiazem HCl [Diltiazem ER] 240 mg PO DAILY #30 tab.er.24h Apixaban [Eliquis] 5 mg PO BID #60 tablet Referrals: None,PCP [Primary Care Provider] - Attestation - Scribe Verification/Attestation Scribe:: Chinyere Rivers Acting as Scribe for:: Bridger Rey Scribe documention review:: This chart was documented by a scribe and accurately reflects the service the provider performed and the decisions made by the provider. <Chinyere Rivers - Last Filed: 07/21/16 11:15> Physician Attestation
[2016-07-21 10:09] LABS: MANUAL DIFF NEEDED? NO
[2016-07-21] MEDS ORDERED: CARDIZEM 100 MG/NS 100 ML IV SCH ×2 (10:15→10:37)
[2016-07-21 10:18] LABS: BASO% 0.5 % (0.0-0.8); EOS# 0.11 X1000 (0.0-0.7); EOS% 1.7 % (0.0-10.0); HEMATOCRIT 35.8 % (42.0-52.0); HEMOGLOBIN 11.7 g/dL (14.0-18.0); IMM GRAN# 0.03 X1000 (0.0-0.04); IMM GRAN% 0.5 % (0.0-0.5); LYMPH% 10.7 % (20.5-51.1); MCH 30.2 PG (27-31); MCHC 32.7 g/dL (33-37); MCV 92.5 FL (81-99); MONO# 0.57 X1000 (0.11-0.59); MONO% 8.7 % (1.7-9.3); MPV 10.9 FL (7.4-10.4); NEUT% 77.9 % (42.2-75.2); PLT 169 X1000 (130-400); RBC 3.87 XMIL (4.7-6.1)
[2016-07-21 10:24] LABS: URINE CULTURE NEEDED? NO; URINE MICRO REVIEW NEEDED? NO; URINE SOURCE CLEAN CATCH
[2016-07-21 10:28] LABS: BILIRUBIN URINE NEGATIVE (NEGATIVE); BLOOD URINE NEGATIVE (NEGATIVE); COLOR YELLOW; GLUCOSE URINE NEGATIVE (NEGATIVE); LEUKOCYTES URINE NEGATIVE (NEGATIVE); NITRITE URINE NEGATIVE (NEGATIVE); PROTEIN URINE NEGATIVE (NEGATIVE); SP GRAVITY URINE 1.009; TURBIDITY URINE CLEAR (CLEAR); UR EPITHELIAL CELLS <10 /HPF (<10); URINE BACTERIA NEGATIVE /HPF; URINE RBC <10 /HPF (<10); URINE WBC <10 /HPF (<10); UROBILINOGEN URINE NORMAL (NORMAL)
[2016-07-21 10:52] LABS: AGAP 14; ALBUMIN 3.2 g/dL (3.5-5.0); ALKALINE PHOSPHATASE 90 U/L (32-122); BUN 18 mg/dL (8-22); CALCIUM 8.6 mg/dL (8.8-10.2); CHLORIDE 102 mmol/L (98-107); COSMO 288; GOT 17 U/L (10-34); GPT 21 U/L (10-44); POTASSIUM 3.4 mmol/L (3.5-5.1); SODIUM 141 mmol/L (136-145); TCO2 25 mmol/L (25-35); TOTAL BILIRUBIN 0.16 mg/dL (0.20-1.00); TOTAL PROTEIN 6.2 g/dL (6.3-8.3)
[2016-07-21] MEDS ORDERED: CARDIZEM CD PO ONE (11:19)
[2016-07-21] MEDS ORDERED: ELIQUIS PO ONE (11:19)
[2016-07-21 11:36] VITALS: BP 127/77
--- NOTE | 2016-07-22 15:46 | EKG Report ---
Test Performed on : 07/21/2016 08:18:46 AM Test Reason : ED. Not ordered in [place] Blood Pressure : / mmHG Vent. Rate : 118 BPM Atrial Rate : 220 BPM P-R Int : 000 ms QRS Dur : 120 ms QT Int : 330 ms P-R-T Axes : 000 076 047 degrees QTc Int : 462 ms Atrial fibrillation. with rapid ventricular response. Right bundle branch block Septal infarct , age undetermined Abnormal ECG When compared with ECG of 23-JUN-2016 06:26, Septal infarct is now present ST no longer depressed in Inferior leads ST no longer depressed in Anterolateral leads T wave inversion no longer evident in Inferior leads Unconfirmed Result
== END 2016-07-21 11:57 ==
LOC: ED 09:11
DX: I48.1 Persistent atrial fibrillation (principal); R94.31 Abnormal electrocardiogram [ECG] [EKG]; R06.02 Shortness of breath; R00.0 Tachycardia, unspecified; I10 Essential (primary) hypertension; E11.9 Type 2 diabetes mellitus without complications; Z79.82 Long term (current) use of aspirin; Z79.899 Other long term (current) drug therapy
CPT/HCPCS: 80053; 81001; 83880; 85025; 85379; 93005; 99283